=== PATIENT | female | born 1970 | race Caucasian/White ===

== ENCOUNTER → 2016-10-18 | Outpatient (CLI) | payer BC ==
[2016-10-18 15:37] LABS: INR - (THERAPEUTIC) 4.5 (0.9-1.1); PROTIME 54.3 SECONDS (9.6-11.1)
== END | disposition disaster alternative care site (69) ==
LOC: GLAB 15:00
PROVIDERS: Obstetrics & Gynecology Reproductive Endocrinology
DX: D68.51 Activated protein C resistance (principal); Z79.01 Long term (current) use of anticoagulants

== ENCOUNTER → 2017-03-24 | Outpatient (CLI) | payer BC ==
[2017-03-24 10:54] LABS: INR - (THERAPEUTIC) 1.98 (0.92-1.07); PROTIME 20.9 SECONDS (9.8-11.4)
== END | disposition disaster alternative care site (69) ==
LOC: GLAB 03-16 15:21
PROVIDERS: Obstetrics & Gynecology Reproductive Endocrinology
DX: Z51.81 Encounter for therapeutic drug level monitoring (principal); D68.52 Prothrombin gene mutation; Z79.899 Other long term (current) drug therapy